=== PATIENT | male | born 1945 | race Caucasian/White ===

== ENCOUNTER 2017-01-21 07:36 | Day surgery (SDC) | payer OTHER ==
[2017-01-20 11:49] VITALS: BMI 31.4
[2017-01-21] MEDS ORDERED: PROPOFOL 20 ML ONE (07:40)
[2017-01-21 09:16] VITALS: TEMP 98.3
[2017-01-21 10:23] VITALS: BP 138/66; PULSE 54
--- NOTE | 2017-01-22 13:08 | PATH ---
Surgical Pathology Report Patient Name: ANTONIO CONTRERAS [facility]. Rec. #: [id number] /Age/Gender: 1945 (Age: 71) / M Account: [id number] Location: [facility]OS[facility] Taken: 01/21/2017 Received: 01/21/2017 Reported: 01/22/2017 Physicians: Liban Briseno M.D. Specimen(s) Received A: BX DUODENUM B: BX ANTRUM Clinical History GERD Rule out celiac disease, gastritis Final Diagnosis A. DUODENUM, BIOPSY: DUODENAL MUCOSA WITH NO PATHOLOGIC CHANGES. NO HISTOLOGIC EVIDENCE OF GLUTEN SENSITIVE ENTEROPATHY (CELIAC SPRUE) IDENTIFIED. B. STOMACH, ANTRUM, BIOPSY: MILD CHRONIC GASTRITIS. IMMUNOSTAIN FOR H. PYLORI IS NEGATIVE. Electronically Signed Sergio Mcfarlane M.D. Gross Description A. Received in formalin, labeled "duodenum" are 2 clay, irregular portions of soft tissue measuring 0.3 and 0.5 cm. in greatest dimension. The specimens are submitted in toto in one cassette. B. Received in formalin, labeled "antrum" are 2 clay, irregular portions of soft tissue measuring 0.4 and 0.7 cm. in greatest dimension. The specimens are submitted in toto in one cassette. 01/21/2017 saudi01/21/2017
== END 2017-01-21 09:45 | disposition home or self-care (01) ==
LOC: FASU-ENDO 07:36
PROVIDERS: ATTEND Internal Medicine Gastroenterology
PROC: 0DB98ZX Excision of Duodenum, Via Natural or Artificial Opening Endoscopic, Diagnostic (ICD-10-PCS; principal; 2017-01-21 08:47)
PROC: 0DB68ZX Excision of Stomach, Via Natural or Artificial Opening Endoscopic, Diagnostic (ICD-10-PCS; 2017-01-21 08:47)
DX: K29.50 Unspecified chronic gastritis without bleeding (principal)
CPT/HCPCS: 88305-TC; 88342-TC